=== PATIENT | male | born 2005 | race Caucasian/White ===

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

== ENCOUNTER 2025-08-02 21:02 | Emergency (ER) | payer OTHER ==
[~2025-08-02] VITALS: Ht 177.8 cm; Wt 81.6 kg
[2025-08-02] MEDS ORDERED: ZITHROMAX250 MG PO (23:08)
== END 2025-08-02 23:18 | disposition home or self-care (01) ==
LOC: ED 21:02
DX: J45.909 Unspecified asthma, uncomplicated (principal); Z79.899 Other long term (current) drug therapy